=== PATIENT | male | born 1975 | race Caucasian/White ===

== ENCOUNTER 2017-04-30 15:27 | Emergency (ER) | payer SELFPAY ==
[~2017-04-30] VITALS: Ht 185.4 cm; Wt 90.7 kg
[~2017-04-30 15:27] MED LIST: ALPR1T PO; FLUO10CA19 PO; NITR-65 PO
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
[2017-04-30] MEDS ORDERED: IBUPROFEN 800 MG (MOTRIN) TAB PO ONE (16:00)
--- NOTE | 2017-04-30 17:31 | Diagnostic Imaging Report ---
INDICATION: Injury to the right testicle status post trauma. EXAMINATION: Bilateral scrotal sonogram, 04/30/2017. FINDINGS: There is bilateral symmetric blood flow to the testes. The right measures 5.8 x 3.3 x 3.5 cm and the left measures 4.7 x 2.3 x 3.6 cm. A few small intratesticular calcifications are noted, bilaterally. There are two nonspecific heterogeneous areas noted within the right testicle. The largest is 1.4 cm in greatest dimension. The second measures 0.8 cm. No internal vascularity is seen in either lesion; however, the smaller lesion does demonstrate mild adjacent blood flow. Given the history of trauma, these are most likely intratesticular hematomas. However, these should be followed to assure complete resolution and exclude underlying masses. IMPRESSION: 1. Two heterogeneous lesions are noted within the right testicle, possibly hematomas given the history. However, short-term interval followup is recommended to assure resolution and exclude intratesticular masses. 2. Bilateral calcifications, likely benign process. Dictated on workstation # [id number]
[2017-04-30] MEDS ORDERED: SULF1TAB35 PO (17:53)
[2017-04-30] MEDS ORDERED: TRIM/SULFAMETH 160/800 (SEPTRA DS) TAB PO ONE (18:00)
[2017-04-30 18:15] VITALS: BP 130/76
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
== END 2017-04-30 18:15 | disposition home or self-care (01) ==
LOC: EDUNIT# 15:27 → ER 15:30
DX: S30.22XA Contusion of scrotum and testes, initial encounter (principal); W51.XXXA Accidental striking against or bumped into by another person, initial encounter
CPT/HCPCS: 76870; 99282

== ENCOUNTER 2017-10-09 09:48 | Emergency (ER) | payer SELFPAY ==
[~2017-10-09] VITALS: Ht 185.4 cm; Wt 81.6 kg
[~2017-10-09 09:48] MED LIST changes: +SULF1TAB35 PO
[2017-10-09] MEDS ORDERED: DEXT15TA PO (10:13)
[2017-10-09] MEDS ORDERED: LIDOCAINE 1% INJ 20 ML (XYLOCAINE) VIAL INJ ONE (10:15)
--- NOTE | 2017-10-09 10:17 | ED General ---
General Chief Complaint: Skin/Wound Problems Stated Complaint: LUMP LOWER LT CHIN Nursing Triage Note: c/o swelling to chin. Onset 4 days ago. Nursing Sepsis Screen: No Definite Risk Source of Information: Patient Exam Limitations: No Limitations (ALEENA PARKER MD) History of Present Illness Time Seen by Provider: 10:03 Initial Comments This 42-year-old gentleman presents emergency room with complaints of a lump on the left lower mandible that has become progressively larger and more painful over the past 4-5 days. He denies any fever or other systemic symptoms. The apparent abscess is starting to drain. He denies any prior history of abscess or skin infection. (ALEENA PARKER MD) Allergies and Home Medications Allergies Coded Allergies: No Known Drug Allergies (Unverified , 04/30/17) Home Medications Alprazolam 1 Mg Tablet, 1 TAB PO TID PRN, (Reported) Dextroamphetamine/Amphetamine 15 Mg Tablet, 15 MG PO BID, (Reported) Nitrofurantoin/Nitrofuran Mac 100 Mg Capsule, 1 EACH PO BID, #20 Ref 0 FOR INFECTION Prescribed by: SHARLENE ALVAREZ on 06/09/10 1111 Sulfamethoxazole/Trimethoprim 1 Each Tablet, 1 EACH PO BID for 7 Days Prescribed by: GRACE MONTIEL MD on 04/30/17 1753 Sulfamethoxazole/Trimethoprim 1 Each Tablet, 1 EACH PO BID, #14 Prescribed by: ANDREW ISRAEL on 10/09/17 1040 Constitutional: no symptoms reported EENTM: see HPI Respiratory: no symptoms reported Cardiovascular: no symptoms reported Gastrointestinal: no symptoms reported Genitourinary: no symptoms reported Musculoskeletal: no symptoms reported Skin: see HPI Psychiatric/Neurological: No Symptoms Reported Hematologic/Lymphatic: No Symptoms Reported (ALEENA PARKER MD) Past Wturkza-Fescse-Opvqje Hx Patient Social History Recent Foreign Travel: No Contact w/Someone Who Travel: No Recent Infectious Disease Expo: No (ALEENA PARKER MD) Surgeries History of Surgeries: No (ALEENA PARKER MD) Respiratory History of Respiratory Disorde: No (ALEENA PARKER MD) Cardiovascular History of Cardiac Disorders: No (ALEENA PARKER MD) Neurological History of Neurological Disord: No (ALEENA PARKER MD) Reproductive System Hx Reproductive Disorders: No (ALEENA PARKER MD) Genitourinary History of Genitourinary Disor: No (ALEENA PARKER MD) Gastrointestinal History of Gastrointestinal Di: No (ALEENA PARKER MD) Musculoskeletal History of Musculoskeletal Dis: No (ALEENA PARKER MD) Endocrine History of Endocrine Disorders: No (ALEENA PARKER MD) HEENT History of HEENT Disorders: No (ALEENA PARKER MD) Cancer History of Cancer: No (ALEENA PARKER MD) Psychosocial History of Psychiatric Problem: No (ALEENA PARKER MD) Integumentary History of Skin or Integumenta: No (ALEENA PARKER MD) Blood Transfusions History of Blood Disorders: No (ALEENA PARKER MD) Physical Exam Vital Signs Vital Sign - Last 12Hours 10/09/17 10:06 Temp 97.5 Pulse 70 Resp 16 B/P (MAP) 132/70 Pulse Ox 98 O2 Delivery Room Air (ANDREW ISRAEL APRN) Vital Signs Capillary Refill : Less Than 3 Seconds (ALEENA PARKER MD) General Appearance: No Apparent Distress, WD/WN HEENT: PERRL/EOMI, TMs Normal, Other (there is an apparent abscess on the left inferior mandible measuring about 3 cm in diameter. There is a small area of drainage on the posterior aspect. This area is tender and tight) Neck: Normal Inspection Respiratory: Lungs Clear, Normal Breath Sounds, No Accessory Muscle Use, No Respiratory Distress Cardiovascular: Regular Rate, Rhythm, No Edema, No Murmur Neurologic/Psychiatric: Alert, Oriented x3, No Motor/Sensory Deficits, Normal Mood/Affect, catering assistant II-XII Norm as Tested Skin: Normal Color, Warm/Dry, Other (see above) (ALEENA PARKER MD) I&D : Blade Size: 11 Progress Left mandibular abscess was anesthetized with 1 mL of 1 percent lidocaine without epinephrine. Wound then incised 1 cm with an 11 scalpel. Large amount of purulent material was expressed. Culture collected and sent to lab. Cavity was irrigated with Betadine/saline solution. Covered with gauze. (ANDREW ISRAEL APRN) Progress/Results/Core Measures Suspected Sepsis Recent Fever Within 48 Hours: No Infection Criteria Present: Suspected New Infection New/Unexplained Altered Menta: No Sepsis Screen: No Definite Risk Sepsis Diagnosis: SIRS Temperature:97.5 Pulse: 70 Respiratory Rate: 16 Blood Pressure 132 /70 Mean: 90 (ALEENA PARKER MD) Results/Orders Medications Given in ED Current Medications Medications Dose Ordered Sig/Rogerio Route Start Time Stop Time Status Last Admin Dose Admin Lidocaine HCl 20 ml ONCE ONCE INJ 10/09/17 10:15 10/09/17 10:17 DC 10/09/17 10:20 20 ML (ANDREW ISRAEL APRN) Vital Signs/I&O Vital Sign - Last 12Hours 10/09/17 10/09/17 10:06 10:20 Temp 97.5 97.5 Pulse 70 Resp 16 B/P (MAP) 132/70 Pulse Ox 98 O2 Delivery Room Air (ANDREW ISRAEL APRN) Vital Signs/I&O Capillary Refill : Less Than 3 Seconds (ALEENA PARKER MD) Blood Pressure Mean: 90 Departure Impression Impression: Primary Impression: Abscess of face Additional Impression: Encounter for incision and drainage procedure Disposition: 01 HOME, SELF-CARE Condition: Improved Departure-Patient Inst. Decision time for Depature: 10:39 (ANDREW ISRAEL APRN) Referrals: DANTE CHOPRA DO (PCP/Family) Primary Care Physician Patient Instructions: Abscess Incision and Drainage (DC) Add. Discharge Instructions: 1. Return to ER for any concerns such as recurrent swelling, fevers or any other concerns. Follow-up with your doctor this week 2. Take antibiotics as directed All discharge instructions reviewed with patient and/or family. Voiced understanding. Scripts Sulfamethoxazole/Trimethoprim (Bactrim Ds Tablet) 1 Each Tablet 1 EACH PO BID, #14 TAB Prov: ANDREW ISRAEL APRN 10/09/17 ALEENA PARKER MD Oct 09, 2017 10:17 ANDREW ISRAEL APRN Oct 09, 2017 10:40
[2017-10-09] MEDS ORDERED: SULF1TAB35 PO (10:40)
[2017-10-09 11:14] VITALS: BP 132/70
== END 2017-10-09 11:14 | disposition home or self-care (01) ==
LOC: EDUNIT# 09:48 → ER 09:50
DX: L02.01 Cutaneous abscess of face (principal)
CPT/HCPCS: 87070; 87186; 87205